=== PATIENT | male | born 1965 | race Caucasian/White ===

== ENCOUNTER → 2019-02-23 | Outpatient (CLI) | payer BC ==
--- NOTE | 2019-02-23 09:41 | RAD ---
Examination: CT chest without contrast HISTORY: History of chronic cough, lung nodule COMPARISON: 03/05/2015 TECHNIQUE: Axial CT images of the chest were performed without contrast. Coronal and sagittal reformats are performed Exposure: One or more of the following individualized dose reduction techniques were utilized for this examination: 1. Automated exposure control 2. Adjustment of the mA and/or kV according to patient size 3. Use of iterative reconstruction technique FINDINGS: The visualized thyroid gland grossly appears unremarkable. The central airways are patent. The cardiomediastinal silhouette grossly appears unremarkable. The caliber of the aorta grossly appears unremarkable. No radiologically significant mediastinal lymphadenopathy. Minimal groundglass atelectasis identified in the left upper lobe of the lung. There is a 4 mm nodule identified in the left upper lobe of the lung abutting the fissure. No evidence of pleural effusion or pneumothorax. Mild decreased attenuation noted in the liver. The visualized spleen, adrenals grossly appears unremarkable. No evidence of lytic bony destructive lesion. IMPRESSION: 1. Faint groundglass opacities identified in the left upper lobe of the lung probably atelectasis. There is a 4 mm nodule identified in the left upper lobe lung abutting fissure. Follow-up per Fleischner Society guidelines with a follow-up CT in 12 months. 2. Mild hepatic steatosis. Electronically signed by: Ralf Rosen MD (02/23/2019 9:38 AM) [id number]
== END | disposition home or self-care (01) ==
LOC: CT 08:48
PROVIDERS: ATTEND Family Medicine
DX: R91.1 Solitary pulmonary nodule (principal); K76.0 Fatty (change of) liver, not elsewhere classified
CPT/HCPCS: 71250

== ENCOUNTER 2021-12-19 09:51 | Emergency (ER) | payer BC ==
[~2021-12-19] VITALS: Ht 180.3 cm; Wt 113.0 kg
[2021-12-19] MEDS ORDERED: LABETALOL 20 MG/4 ML DISP.SYRIN. IVP ONE ×2 (10:15→11:30)
[2021-12-19] MEDS ORDERED: cloNIDine HCL 0.1 MG TABLET PO ONE (10:30)
--- NOTE | 2021-12-19 10:40 | RAD ---
EXAM: XR CHEST 1V 12/19/2021 10:20 AM CLINICAL INDICATION: Shortness of breath COMPARISON: CT chest 02/23/2019 TECHNIQUE: AP upright view of the chest FINDINGS: The cardiac silhouette is prominent. Lungs are adequately expanded. There are patchy bilat eral opacities, greatest in the perihilar region. No pleural effusion or pneumothorax. IMPRESSION: New patchy bilateral pulmonary opacities could be due to pneumonia or pulmonary edema. Electronically signed by: Stefani Spence MD (12/19/2021 10:38 AM) [id number]
--- NOTE | 2021-12-19 10:50 | PHYS DOC ---
Past History Past Medical History: Hypertension Additional Past Medical Histor: pulmonary nodule, "chamber of heart doesn't fully relax" (BHAVANI ADAMS) Past Surgical History: No Surgical History (BHAVANI ADAMS) Smoking: Cigarettes Alcohol Use: Occasionally Drug Use: None (BHAVANI ADAMS) General Adult EDM: Chief Complaint: SHORTNESS OF BREATH HPI: HPI: Patient is a 56 year old male who presents with intermittent shortness of breath x1 week. Patient reports associated cough, mild headache, fatigue. His shortness of breath is worse at night and prevents him from laying down flat to sleep. Patient states last night, his shortness of breath was so severe that he was unable to sleep at all. Shortness of breath is worse with exertion and with speaking in long sentences. Patient denies fever, chills, sputum production, chest pain, palpitations and edema. Patient states he has not taken his blood pressure medication for a period of about 6 months. He currently smokes cigarettes, but has decided to quit smoking today due to his severity of symptoms. (BHAVANI ADAMS) Review of Systems: Review of Systems: Constitutional: See HPI Eyes: Denies change in visual acuity, visual field deficits or discharge HENT: Denies ear pain, nasal congestion or sore throat Respiratory: See HPI Cardiovascular: See HPI GI: Denies abdominal pain, nausea, vomiting, bloody stools or diarrhea : Denies dysuria or hematuria Musculoskeletal: Denies back pain or joint pain Integument: Denies rash or other skin lesion Neurologic: Denies headache, focal weakness or sensory changes (BHAVANI ADAMS) Current Medications: Current Meds: Current Medications Medications (Trade) Dose Ordered Sig/Charles Route PRN Reason Start Time Stop Time Status Last Admin Dose Admin Clonidine HCl (Catapres) 0.2 mg 1X ONCE PO 12/19/21 10:30 12/19/21 10:35 DC 12/19/21 10:40 Furosemide (Lasix) 80 mg 1X ONCE IVP 12/19/21 11:30 12/19/21 11:31 DC 12/19/21 11:36 Labetalol HCl (Normodyne) 20 mg 1X ONCE IVP 12/19/21 11:30 12/19/21 11:31 DC 12/19/21 11:34 Iohexol (Omnipaque 350 Mg/ml) 100 ml 1X ONCE IV 12/19/21 11:30 12/19/21 11:31 DC 12/19/21 11:48 Furosemide (Lasix) 40 mg 1X ONCE IVP 12/19/21 16:30 12/19/21 16:31 DC 12/19/21 16:30 (BHAVANI ADAMS) Allergies: Allergies: Allergies Coded Allergies Type Severity Reaction Last Updated Verified No Known Drug Allergies 01/06/14 No (BHAVANI ADAMS) Physical Exam: PE: Constitutional: Obese, patient sitting straight upright with increased work of breathing. HENT: Normocephalic, atraumatic, bilateral external ears normal, nose normal. Eyes: EOMI, conjunctiva normal, no discharge. Neck: Normal range of motion, no stridor. Cardiovascular: Elevated heart rate with regular rhythm, no obvious murmur. Lungs & Thorax: Expiratory wheezing heard throughout lung rivas, right greater than left. Abdomen: Protuberant abdomen, soft, no tenderness, no masses, no pulsatile masses. Skin: Warm, dry, no erythema, no rash. Extremities: No tenderness, no cyanosis, no clubbing, ROM intact, no edema. Neurologic: Alert and oriented x4, motor and sensory function grossly intact, steady and symmetrical upright gait, no focal deficits noted. (BHAVANI ADAMS) Current Patient Data: Labs: Laboratory Tests Test 12/19/21 10:40 White Blood Count 9.7 x10^3/uL (4.0-11.0) Red Blood Count 3.99 x10^6/uL (4.30-5.70) Hemoglobin 13.2 g/dL (13.0-17.5) Hematocrit 39.3 % (39.0-53.0) Mean Corpuscular Volume 99 fL (79-100) Mean Corpuscular Hemoglobin 33 pg (25-35) Mean Corpuscular Hemoglobin Concent 34 g/dL (31-37) Red Cell Distribution Width 14.1 % (11.5-14.5) Platelet Count 379 x10^3/uL (140-400) Neutrophils (%) (Auto) 77 % (31-73) Lymphocytes (%) (Auto) 13 % (24-48) Monocytes (%) (Auto) 9 % (0-9) Eosinophils (%) (Auto) 0 % (0-3) Basophils (%) (Auto) 1 % (0-3) Neutrophils # (Auto) 7.4 x10^3uL (1.8-7.7) Lymphocytes # (Auto) 1.2 x10^3/uL (1.0-4.8) Monocytes # (Auto) 0.9 x10^3/uL (0.0-1.1) Eosinophils # (Auto) 0.0 x10^3/uL (0.0-0.7) Basophils # (Auto) 0.1 x10^3/uL (0.0-0.2) D-Dimer (Traci) 0.80 mg/L (0.00-0.50) Sodium Level 134 mmol/L (136-145) Potassium Level 4.1 mmol/L (3.5-5.1) Chloride Level 100 mmol/L (98-107) Carbon Dioxide Level 24 mmol/L (21-32) Anion Gap 10 (6-14) Blood Urea Nitrogen 10 mg/dL (8-26) Creatinine 0.8 mg/dL (0.7-1.3) Estimated GFR (Cockcroft-Gault) 100.7 BUN/Creatinine Ratio 13 (6-20) Glucose Level 193 mg/dL (70-99) Calcium Level 8.5 mg/dL (8.5-10.1) Total Bilirubin 0.8 mg/dL (0.2-1.0) Aspartate Amino Transf (AST/SGOT) 77 U/L (15-37) Alanine Aminotransferase (ALT/SGPT) 69 U/L (16-63) Alkaline Phosphatase 84 U/L (46-116) Troponin I High Sensitivity 78 ng/L (4-75) QS-Fyv-Z-Type Natriuretic Peptide 1819 pg/mL (0-124) Total Protein 6.5 g/dL (6.4-8.2) Albumin 3.2 g/dL (3.4-5.0) Albumin/Globulin Ratio 1.0 (1.0-1.7) Vital Signs: Vital Signs Date Time Temp Pulse Resp B/P (MAP) Pulse Ox O2 Delivery O2 Flow Rate FiO2 12/19/21 19:43 115 20 173/94 (120) 95 Room Air 12/19/21 18:58 120 35 164/94 (117) 94 Room Air 12/19/21 14:58 109 25 94 Room Air 12/19/21 14:58 102 23 117/65 (82) 94 Room Air 12/19/21 14:55 120 25 150/99 (116) 95 Room Air 12/19/21 11:59 103 23 107/65 (79) 94 Room Air 12/19/21 11:34 121 150/99 12/19/21 11:13 122 30 149/96 (113) 92 Room Air 12/19/21 10:59 126 33 162/106 (124) 93 Room Air 12/19/21 10:40 127 168/110 12/19/21 10:29 127 30 168/110 (129) 94 Room Air 12/19/21 10:00 98.1 129 22 187/122 (143) 94 Room Air (BHAVANI ADAMS) EKG: EKG: EKG Interpreted by Dr. Lopez at 1029: Sinus tachycardia 126 bpm with no ectopic beats. Left ventricular hypertrophy. QT 326 ms/QTc 472 ms. No STEMI. EKG also reviewed by Dr. Austin, no STEMI. EKG Interpreted by Dr. Lopez at 1220: Sinus tachycardia 104 bpm with no ectopic beats. Left ventricular hypertrophy. QT 368 ms/QTc 44 ms. No STEMI. (BHAVANI ADAMS) Radiology/Procedures: Radiology/Procedures: PROCEDURE: CHEST AP ONLY EXAM: XR CHEST 1V 12/19/2021 10:20 AM CLINICAL INDICATION: Shortness of breath COMPARISON: CT chest 02/23/2019 TECHNIQUE: AP upright view of the chest FINDINGS: The cardiac silhouette is prominent. Lungs are adequately expanded. There are patchy bilateral opacities, greatest in the perihilar region. No pleural effusion or pneumothorax. IMPRESSION: New patchy bilateral pulmonary opacities could be due to pneumonia or pulmonary edema. Electronically signed by: Stefani Spence MD (12/19/2021 10:38 AM) [id number] (BHAVANI ADAMS) Heart Score: C/O Chest Pain: No (BHAVANI ADAMS) Course & Med Decision Making: Course & Med Decision Making Pertinent Labs and Imaging studies reviewed. (See chart for details) Patient is a 56-year-old male who currently smokes cigarettes presenting with 1 week history of intermittent shortness of breath that is worsened significantly over the past 2 days. His shortness of breath was so intense last night, that he sat up straight on the couch and attempt to sleep, but could not get comfortable enough to do so. Patient's blood pressure is elevated without blood pressure medication for period of about 6 months. Work-up today will consist of labs including troponin and D-dimer, EKG, chest x-ray, urinalysis, urine drug screen. Patient will be treated with 0.2 Catapres and will reevaluate blood pressure after 30 minutes. Labetalol was deferred at this time, secondary to patient wheezing on exam. Discussed patient case and reviewed EKG with Dr. Austin, who does not see ST elevation at this time. Dr. Austin advised that labetalol can be administered, as his wheezing is likely cardiac wheezing. Patient will be given 20 IV labetalol as well as 80 IV Lasix and an EKG will be repeated. D-dimer elevated at 0.8. CT angio ordered. Discussed patient case with Dr. Guzman (hospitalist), who advises patient be transferred to [facility] for higher level of care and full cardiac work-up. No PE is seen on CT angio. Findings consistent with pulmonary edema versus atypical pneumonia. COVID-19 cannot be ruled out at this point despite negative rapid test. PCR test result is pending. Dr. Duffy (hospitalist at [facility]) gladly accepted patient for admission, but they do not have any CVC or telemetry beds available at this time. Patient will be held here in the emergency department until a bed becomes available. Prior to patient being transferred to [facility], the patient and his sister request that they speak to the attending physician in the department. Dr. Lopez was more than happy to answer any further questions they might have for him. (BHAVANI ADAMS) Course & Med Decision Making See Adams chart for details. (CAIO LOPEZ MD) Dragon Disclaimer: Dragon Disclaimer: This electronic medical record was generated, in whole or in part, using a voice recognition dictation system. (BHAVANI ADAMS) Departure Departure: Impression: Primary Impression: New onset of congestive heart failure Additional Impressions: Left ventricular hypertrophy by electrocardiogram Shortness of breath at rest Disposition: 02 SHORT TERM HOSPITAL Condition: GUARDED Referrals: HERNANDO RODRIGUEZ MD (PCP) Attending Signature Attending Signature I have participated in the care of this patient and I have reviewed and agree with all pertinent clinical information above including history, exam, and recommendations. (CAIO LOPEZ MD) Attending Signature Attending Signature I have participated in the care of this patient and I have reviewed and agree with all pertinent clinical information above including history, exam, and recommendations. (CAIO LOPEZ MD) Dragon Disclaimer This chart was dictated in whole or in part using Voice Recognition software in a busy, high-work load, and often noisy Emergency Department environment. It may contain unintended and wholly unrecognized errors or omissions. (CAIO LOPEZ MD) BHAVANI ADAMS Dec 19, 2021 10:50 CAIO LOPEZ MD Dec 19, 2021 19:54
[2021-12-19 10:55] LABS: BASO # 0.1 x10^3/uL (0.0-0.2); BASO % 1 % (0-3); EOS % 0 % (0-3); HEMATOCRIT 39.3 % (39.0-53.0); HEMOGLOBIN 13.2 g/dL (13.0-17.5); LYMPH # 1.2 x10^3/uL (1.0-4.8); LYMPH % 13 % (24-48); MEAN CORPUSCULAR HEMOGLOBIN 33 pg (25-35); MEAN CORPUSCULAR HGB CONC 34 g/dL (31-37); MEAN CORPUSCULAR VOLUME 99 fL (79-100); MONO # 0.9 x10^3/uL (0.0-1.1); MONO % 9 % (0-9); NEUT # 7.4 x10^3uL (1.8-7.7); NEUT % 77 % (31-73); PLATELET COUNT 379 x10^3/uL (140-400); RED BLOOD COUNT 3.99 x10^6/uL (4.30-5.70); RED CELL DISTRIBUTION WIDTH 14.1 % (11.5-14.5); WHITE BLOOD COUNT 9.7 x10^3/uL (4.0-11.0)
[2021-12-19 11:06] LABS: CALCIUM 8.5 mg/dL (8.5-10.1); CREATININE 0.8 mg/dL (0.7-1.3); GFR 100.7; POTASSIUM 4.1 mmol/L (3.5-5.1)
--- NOTE | 2021-12-19 11:17 | EKG ---
[address] [address] Test Date: 2021-12-19 Test Time: 10:27:10 Pat Name: MARY ESTRADA Department: Room: Gender: M Detention Worker: ADRYAN : 1965 Requested By: BHAVANI ADAMS Order Number: [id number] Reading MD: Sanjay Motley Measurements Intervals [place] Rate: 126 P: 0 DE: 78 QRS: 34 QRSD: 110 T: 59 QT: 326 QTc: 472 Interpretive Statements SINUS TACHYCARDIA CONSIDER LEFT VENTRICULAR HYPERTROPHY ST & T ABNORMALITY, CONSIDER RECENT ANTEROSEPTAL MYOCARDIAL OR PERICARDIAL DAMAGE Electronically Signed On 12-19-2021 13:33:30 SENIOR LOAN OFFICER by Sanjay Motley
[2021-12-19 11:20] LABS: ALBUMIN 3.2 g/dL (3.4-5.0); TOTAL BILIRUBIN 0.8 mg/dL (0.2-1.0); TOTAL PROTEIN 6.5 g/dL (6.4-8.2)
[2021-12-19] MEDS ORDERED: IOHEXOL 350 MG/ML 100 ML VIAL. IV ONE (11:30)
[2021-12-19] MEDS ORDERED: FUROSEMIDE 40 MG/4 ML VIAL IVP ONE ×2 (11:30→16:30)
[2021-12-19] MEDS ORDERED: CONTRAST GIVEN. MC PRN (11:45)
--- NOTE | 2021-12-19 12:24 | RAD ---
Examination: CT angiography chest with IV contrast HISTORY: History of shortness of breath, tachycardia, elevated d-dimer COMPARISON: 02/23/2019 TECHNIQUE: Axial CT angiographic images of chest were performed with IV contrast. Coronal and sagitta l 3-D MIP reformats are performed Exposure: One or more of the following individualized dose reduction techniques were utilized for thi s examination: 1. Automated exposure control 2. Adjustment of the mA and/or kV according to patient size 3. Use of iterative reconstruction technique FINDINGS: The central airways are patent. Mild cardiomegaly. The caliber of the aorta grossly appears unremarkable. There is no evidence of anthony ling defect identified in the main pulmonary arterial trunk and right and left main pulmonary arterie s and the visualized lobar, segmental and subsegmental pulmonary arteries. There are multiple patchy airspace groundglass airspace opacities identified in the bilateral lungs. Prominent appearing bilate ral interstitial lung markings. Small bilateral pleural effusions identified. Mild degree attenuation of the liver likely hepatic steatosis. The spleen, adrenals grossly appears unremarkable. Mild degen erative changes thoracic spine. IMPRESSION: 1. No evidence of pulmonary embolism. 2. Multiple patchy airspace groundglass airspace opacities identified in the bilateral lungs likely pneumonia or atypical/viral pneumonia. Follow-up to resolution. 3. Prominent appearing bilateral interstitial lung markings with small bilateral pleural effusions l ikely congestive changes. 4. Mild hepatic steatosis. Electronically signed by: Ralf Rosen MD (12/19/2021 12:21 PM) [id number]
[2021-12-19 12:28] LABS: BARBITURATES NEG (NEG); BENZODIAZEPINES NEG (NEG); CANNABINOIDS NEG (NEG); COCAINE NEG (NEG); METHADONE NEG (NEG); OPIATES NEG (NEG); PHENCYCLIDINE NEG (NEG)
[2021-12-19 12:30] LABS: AMPHETAMINE/METHAMPHETAMINE NEG (NEG)
[2021-12-19 12:32] LABS: BACTERIA,URINE 0 /HPF (0-FEW); BILIRUBIN,URINE NEG (NEG); CLARITY,URINE CLEAR; COLOR,URINE YELLOW; GLUCOSE,URINE 100 mg/dL (NEG); NITRITE,URINE NEG (NEG); RBC,URINE OCC /HPF (0-2); SQUAMOUS EPITHELIAL CELL,UR FEW /LPF; WBC,URINE OCC /HPF (0-4)
--- NOTE | 2021-12-19 12:40 | EKG ---
[address] [address] Test Date: 2021-12-19 Test Time: 12:14:06 Pat Name: MARY ESTRADA Department: Room: Gender: M Refrigeration Supervisor: ED : 1965 Requested By: BHAVANI ADAMS Order Number: [id number] Reading MD: Sanjay Motley Measurements Intervals [place] Rate: 104 P: -26 AR: 92 QRS: 34 QRSD: 108 T: 88 QT: 368 QTc: 484 Interpretive Statements SINUS TACHYCARDIA LEFT ATRIAL ABNORMALITY CONSIDER LEFT VENTRICULAR HYPERTROPHY SEPTAL-ANTERIOR ST CHANGES Electronically Signed On 12-19-2021 13:30:43 HEAD START COORDINATOR by Sanjay Motley
[2021-12-19 12:57] LABS: INFLUENZA A PATIENT NEGATIVE (NEGATIVE); INFLUENZA B PATIENT NEGATIVE (NEGATIVE)
[2021-12-19 19:43] VITALS: BP 173/94
== END 2021-12-19 20:22 | disposition short-term general hospital (02) ==
LOC: ER 09:51
DX: I11.0 Hypertensive heart disease with heart failure (principal); I50.9 Heart failure, unspecified; F17.210 Nicotine dependence, cigarettes, uncomplicated; Z20.822 Contact with and (suspected) exposure to COVID-19
CPT/HCPCS: 36415; 71045; 71275; 80053; 80307; 81001; 83880; 84484; 85025; 85379; 87428; 93005; 96374; 96375; 96376; 99285; C9803; J1940; J3490; Q9967; U0003

== ENCOUNTER → 2022-04-01 | Outpatient (CLI) | payer BC ==
--- NOTE | 2022-04-01 15:43 | CARD ---
MR#: [id number] Date of Study: 04/01/2022 Ordering Physician: ANDERSON DEL RIO, Referring Physician: ANDERSON DEL RIO, Tech: Omar Mcdonough [facility] APPROVED REPORT EXAM: Two-dimensional and M-mode echocardiogram with Doppler and color Doppler. Other Information Quality : AverageHR: 108bpm Rhythm : Tachycardia INDICATION Cardiomyopathy RISK FACTORS Hypertension Hyperlipidemia Diabetes 2D DIMENSIONS Left Atrium(2D)3.9 (1.6-4.0cm)IVSd1.3 (0.7-1.1cm) Aortic Root(2D)3.7 (2.0-3.7cm)LVDd5.7 (3.9-5.9cm) LVOT Diameter2.3 (1.8-2.4cm)PWd1.3 (0.7-1.1cm) LA Fclvmt38 (18-58mL)LVDs4.4 (2.5-4.0cm) FS (%) 23.8 %SV75.2 ml LVEF(%)46.8 (>50%) Mitral Valve MV E Xqwmqkrv36.7cm/sMV DECEL [id number] MV A Soqhksgf671.7cm/sE/A Ratio0.5 Pulmonary Valve PV Peak Asgychhy16.5cm/sPV Peak Grad.4mmHg Tricuspid Valve TR P. Gdfmdkbx188mi/sTR Peak Gr.24mmHg Pulmonary Vein S1 Wcxjgijc34.5cm/sD2 Ldbhoipj78.9cm/s LEFT VENTRICLE The left ventricle is normal size. There is mild to moderate concentric left ventricular hypertrophy. The left ventricular systolic function is mildly impaired. The Ejection Fraction is 40-45%. There is global hypokinesis of the left ventricle. Transmitral Doppler flow pattern is Grade I-abnormal relax ation pattern. No left ventricle thrombus noted on this study. There is no ventricular septal defect visualized. There is no left ventricular aneurysm. There is no mass noted in the left ventricle. RIGHT VENTRICLE The right ventricle is normal size. There is normal right ventricular wall thickness. The right ventr icular systolic function is normal. ATRIA The left atrium size is normal. The right atrium size is normal. The interatrial septum is intact wit h no evidence for an atrial septal defect or patent foramen ovale as noted on 2-D or Doppler imaging. AORTIC VALVE The aortic valve is normal in structure and function. Doppler and Color Flow revealed no significant aortic regurgitation. There is no significant aortic valvular stenosis. There is no aortic valvular v egetation. MITRAL VALVE The mitral valve is normal in structure and function. There is no evidence of mitral valve prolapse. There is no mitral valve stenosis. Doppler and Color-flow revealed trace mitral regurgitation. TRICUSPID VALVE The tricuspid valve is normal in structure and function. Doppler and Color Flow revealed trace tricus pid regurgitation. There is no tricuspid valve prolapse or vegetation. There is no tricuspid valve st enosis. PULMONIC VALVE The pulmonary valve is normal in structure and function. Doppler and Color Flow revealed no pulmonic valvular regurgitation. There is no pulmonic valvular stenosis. GREAT VESSELS The aortic root is normal in size. The ascending aorta is normal in size. The pulmonary artery is nor mal. The IVC is normal in size and collapses >50% with inspiration. PERICARDIAL EFFUSION There is no pleural effusion. There is no evidence of significant pericardial effusion. Critical Notification Critical Value: No <Conclusion> The left ventricular systolic function is mildly impaired. The Ejection Fraction is 40-45%. Transmitral Doppler flow pattern is Grade I-abnormal relaxation pattern. Trace mitral regurgitation. Trace tricuspid regurgitation. There is no evidence of significant pericardial effusion. Signed by : Alexander Garcia, Electronically Approved : 04/01/2022 15:43:12
== END ==
LOC: ECHO 14:27
PROVIDERS: ATTEND Internal Medicine Cardiovascular Disease
DX: I51.7 Cardiomegaly (principal); I42.9 Cardiomyopathy, unspecified
CPT/HCPCS: 93306